=== PATIENT | female | born 1965 | race Caucasian/White ===

== ENCOUNTER 2019-09-01 21:29 | Emergency (ER) | payer BC ==
[~2019-09-01] VITALS: Ht 170.2 cm; Wt 90.0 kg
[2019-09-01] MEDS ORDERED: HYDROcodone/APAP 5/325 TABLET ONE (22:17)
[2019-09-01] MEDS ORDERED: HYDROcodone/APAP 5/325 TABLET PO ONE (22:30)
[2019-09-01 23:05] VITALS: BP 145/93
== END 2019-09-01 23:06 ==
LOC: ED 23:00
DX: S82.431A Displaced oblique fracture of shaft of right fibula, initial encounter for closed fracture (principal); X50.0XXA Overexertion from strenuous movement or load, initial encounter; Y93.89 Activity, other specified; Y92.009 Unspecified place in unspecified non-institutional (private) residence as the place of occurrence of the external cause; Y99.8 Other external cause status
CPT/HCPCS: 29515; 99283